=== PATIENT | male | born 1935 | race Native Hawaiian/Other Pacific Islander ===

== ENCOUNTER 2019-07-08 19:37 | Emergency (ER) | payer OTHER ==
[~2019-07-08] VITALS: Ht 175.3 cm; Wt 92.5 kg
[2019-07-08 20:10] LABS: POTASSIUM 4.5 mmol/L (3.6-5.2)
[2019-07-08 20:11] LABS: PLATELET COUNT 183 K/uL (142-355)
[2019-07-08 21:25] VITALS: BP 122/60; TEMP 98.1
[2019-07-08] MEDS ORDERED: PROBIOTI1 PO (21:39)
[2019-07-08] MEDS ORDERED: CETIRIZINE10 MG PO (21:40)
[2019-07-08] MEDS ORDERED: UNITH DIRECT75 MCG PO (21:40)
[2019-07-08] MEDS ORDERED: SERT100T PO (21:41)
[2019-07-08] MEDS ORDERED: ASCO500T18 PO (21:41)
[2019-07-08] MEDS ORDERED: PANTOPRAZOLE 40MG TA PO (21:42)
[2019-07-08] MEDS ORDERED: OXYB5TAB64 PO (21:43)
[2019-07-08] MEDS ORDERED: METOPROLOL25 M1 PO (21:44)
[2019-07-08] MEDS ORDERED: LISI5TAB10 PO (21:45)
[2019-07-08] MEDS ORDERED: CLOP75TA2 PO (21:45)
[2019-07-08] MEDS ORDERED: MULTI VITAMIN A1 TAB PO (21:46)
[2019-07-08] MEDS ORDERED: ASPIRIN/ENTERIC81 MG PO (21:47)
[2019-07-08] MEDS ORDERED: PACERONE200 MG PO (21:48)
[2019-07-08] MEDS ORDERED: BUSPIRONE10 MG PO (21:48)
[2019-07-08] MEDS ORDERED: GABA300C2 PO (21:49)
[2019-07-08] MEDS ORDERED: NAMENDA5 MG PO (21:49)
[2019-07-08] MEDS ORDERED: PRAVACHOL80 MG PO (21:50)
[2019-07-08] MEDS ORDERED: TERAZOSIN5 MG PO (21:51)
[2019-07-08] MEDS ORDERED: TRAZODONE HYDR100 MG PO (21:51)
[2019-07-08] MEDS ORDERED: TYLENOL325 MG PO (21:52)
[2019-07-08] MEDS ORDERED: NITROGLYCERIN0.4 MG SL (21:55)
== END 2019-07-08 21:25 | disposition other institution (70) ==
LOC: ED 19:37
PROVIDERS: Emergency Medicine
DX: R46.89 Other symptoms and signs involving appearance and behavior (principal); R00.0 Tachycardia, unspecified; Z04.6 Encounter for general psychiatric examination, requested by authority
CPT/HCPCS: 36415; 80053; 85027; 93005; 99283